=== PATIENT | male | born 1960 | race Caucasian/White ===

== ENCOUNTER 2022-08-08 07:53 | Outpatient (REF) | payer MEDICARE, SELFPAY ==
[2022-08-08 10:20] LABS: MANUAL DIFF FLAG NO
[2022-08-08 10:28] LABS: Basophils Absolute Auto 0.1 X10*3/uL (0.0-0.2); Basophils Percent Auto 0.9 % (0-2); Eosinophils Absolute Auto 0.2 X10*3/uL (0.0-0.4); Eosinophils Percent Auto 3.8 % (0-4); Hematocrit 44.4 % (42.0-52.0); Hemoglobin 14.7 g/dl (14.0-18.0); Lymphocytes Absolute Auto 1.5 X10*3/uL (1.2-4.9); Lymphocytes Percent Auto 27.7 % (20-40); Mean Corpuscular HGB Conc 33.1 g/dl (31.0-36.0); Mean Corpuscular Hemoglobin 28.5 pg (27.0-33.0); Mean Corpuscular Volume 86.2 fL (80.0-98.0); Mean Platelet Volume 10.2 fL (9.4-12.4); Monocytes Absolute Auto 0.5 X10*3/uL (0.1-1.2); Monocytes Percent Auto 9.5 % (2-11); Neutrophils Absolute Auto 3.2 x10*3/uL (2.0-8.3); Neutrophils Percent Auto 58.1 % (45-73); Platelet Count 207 X10*3/uL (160-400); Red Blood Count 5.15 X10*6/uL (4.60-5.80); White Blood Count 5.6 X10*3/uL (4.8-10.8)
[2022-08-08 10:57] LABS: Alanine Aminotransferase 15 U/L (0-40); Alkaline Phosphatase 80 U/L (39-117); Anion Gap 14 (12-20); Aspartate Amino Transferase 17 U/L (5-37); Bilirubin Total 0.7 mg/dL (0.0-1.0); Blood Urea Nitrogen 12 mg/dL (9-16); Calcium 8.7 mg/dL (8.4-10.2); Carbon Dioxide 27 mmol/L (22-29); Chloride 102 mmol/L (96-108); Cholesterol 168 mg/dL; Estimated Glomerular Filt Rate > 60; Glucose Fasting 97 mg/dL (60-99); HDL Cholesterol 47 mg/dL; LDL Cholesterol Calculated 110 mg/dl; Potassium 4.5 mmol/L (3.3-5.1); Sodium 138 mmol/L (135-145); Total Protein 6.9 g/dL (6.5-8.0); Triglycerides 55 mg/dL
== END 2022-08-08 07:54 | disposition home or self-care (01) ==
LOC: HO.10HDL 07:53
PROVIDERS: Visit Provider Internal Medicine
DX: Z00.00 Encounter for general adult medical examination without abnormal findings (principal); Z12.5 Encounter for screening for malignant neoplasm of prostate; Z13.31 Encounter for screening for depression; M79.81 Nontraumatic hematoma of soft tissue; B18.2 Chronic viral hepatitis C
CPT/HCPCS: 36415; 80053; 80061; 84153; 84443; 85025

== ENCOUNTER 2022-12-31 10:06 | Outpatient (REF) | payer MEDICARE, SELFPAY ==
[2023-01-02 12:13] LABS: Alpha Fetoprotein 2.4 ng/mL (<6.1)
[2023-01-06 00:59] LABS: FIB-ALT 19 U/L (9-46); FIB-Alpha-2-Macroglobulin 292 mg/dL (106-279); FIB-Apolipoprotein A1 157 mg/dL (94-176); FIB-GGT 10 U/L (3-70); FIB-Haptoglobin 139 mg/dL (43-212); FIB-Total Bilirubin 0.8 mg/dL (0.2-1.2); Liver Fibrosis Score 0.45; Liver Fibrosis Stage F1-F2; Nec Inflam Act Grade A0; Nec Inflam Act Score 0.09
== END 2022-12-31 10:07 | disposition home or self-care (01) ==
LOC: HO.10HDL 10:06
PROVIDERS: Visit Provider Internal Medicine
DX: B18.2 Chronic viral hepatitis C (principal)
CPT/HCPCS: 36415; 81596; 82105

== ENCOUNTER 2023-01-22 08:14 | Outpatient (REF) | payer MEDICARE, SELFPAY ==
--- NOTE | ~2023-01-22 | US_ITS ---
EXAMINATION: US COMPLETE ABDOMEN WITH LIVER ELASTOGRAPHY CLINICAL INFORMATION: Chronic hepatitis C. COMPARISON: None. TECHNIQUE: Real-time imaging of the abdominal viscera. Noninvasive ultrasound liver fibrosis assessment is performed using Angel ElastPQ point quantification shear wave elastography (2D-SWE) with a C5-2 MHz transducer. Multiple elastography samples are obtained. FINDINGS: PANCREAS: Limited. The visualized pancreatic head and body are normal in appearance. The remainder of the pancreas is obscured from visualization by the overlying bowel gas. ABDOMINAL AORTA: The proximal, middle, and distal aortic segments are normal in caliber. INFERIOR VENA CAVA: Visualized portions are normal. LIVER: Normal. The liver demonstrates normal size, contour and echogenicity. No focal lesion or intrahepatic biliary duct dilatation. The right lobe measures 12.5 cm in length. The left lobe measures 11.2 cm in length. Portal flow is towards the liver (hepatopetal). Shear wave liver elastography median stiffness is 1.32 m/s (reference: normal median stiffness is 1.3 m/s or less). IQR/median stiffness to assess sampling precision is 0.09 (reference: good quality data set is IQR/median stiffness of 0.15 or less). GALLBLADDER: Normal. The gallbladder is physiologically distended without evidence of stones, sludge, polyps, wall thickening or pericholecystic fluid. COMMON BILE DUCT: Normal in caliber measuring 0.6 cm in diameter. RIGHT KIDNEY: Normal. No hydronephrosis. No renal calculi or focal parenchymal lesions. The kidney measures 9.3 cm in maximum dimension. LEFT KIDNEY: At the interpolar aspect, a 2.3 cm in maximal diameter anechoic, simple cyst is seen.. No hydronephrosis. No renal calculi or focal parenchymal lesions. The kidney measures 10.3 cm in maximum dimension. SPLEEN: Normal. The spleen measures 8.8 cm in maximum dimension. FREE FLUID: None. US/US abdomen comp w elastography IMPRESSION: 1. Liver elastography: In the absence of other known clinical signs, measurements rule out compensated advanced chronic liver disease. If there are known clinical signs, further testing may be needed for confirmation. 2. A 2.2 cm benign, simple left renal cyst is seen, for which no imaging follow-up is recommended. 3. Technically limited ultrasound examination of the pancreatic tail. REFERENCE: Society of Radiologists in Ultrasound Liver Stiffness Thresholds (2020): LIVER STIFFNESS THRESHOLDS: *Liver Stiffness equal or less than 1.3 m/s: High probability of being normal. *Liver Stiffness less than 1.7 m/s: In the absence of other known clinical signs, rules out compensated advanced chronic liver disease. *Liver Stiffness 1.7-2.1 m/s: Suggestive of compensated advanced chronic liver disease but need further test for confirmation. *Liver Stiffness over 2.1 m/s: Rules in compensated advanced chronic liver disease. *Liver Stiffness over 2.4 m/s: Suggestive of clinically significant portal hypertension. QUALITY OF DATA SET: *IQR/Median value equal or less than 0.15 implies a quality data set. *IQR/Median value over 0.15 implies a poor quality data set. SIGNIFICANT CHANGE FROM PRIOR EXAM: Significant change if liver stiffness measurement is 10% or greater from prior exam. OTHER CONSIDERATIONS: The stage of liver fibrosis may be overestimated in the setting of acute hepatitis, liver inflammation, elevated liver function tests, hepatic vascular congestion, obstructive cholestasis, non-fasting state, and infiltrative diseases such as amyloidosis and lymphoma. In some patients with NAFLD, the liver stiffness thresholds for compensated advanced chronic liver disease may be lower. In causes other than viral hepatitis and NAFLD, liver stiffness thresholds are not well established.
== END 2023-01-22 08:15 | disposition home or self-care (01) ==
LOC: HO.US 08:14
PROVIDERS: Visit Provider Internal Medicine
DX: B18.2 Chronic viral hepatitis C (principal)
CPT/HCPCS: 76705; 76981

== ENCOUNTER 2023-12-30 09:48 | Outpatient (REF) | payer MEDICARE, SELFPAY ==
[2024-01-01 13:02] LABS: Alpha Fetoprotein 2.3 ng/mL (<6.1)
[2024-01-06 14:18] LABS: FIB-ALT 21 U/L (9-46); FIB-Alpha-2-Macroglobulin 273 mg/dL (106-279); FIB-Apolipoprotein A1 164 mg/dL (94-176); FIB-GGT 9 U/L (3-70); FIB-Haptoglobin 117 mg/dL (43-212); FIB-Total Bilirubin 0.7 mg/dL (0.2-1.2); Liver Fibrosis Score 0.39; Liver Fibrosis Stage F1-F2; Nec Inflam Act Grade A0
== END 2023-12-30 09:49 | disposition home or self-care (01) ==
LOC: HO.LAB 09:48
PROVIDERS: PCP Internal Medicine; Visit Provider Internal Medicine
DX: K74.00 Hepatic fibrosis, unspecified (principal); B18.2 Chronic viral hepatitis C; Z86.19 Personal history of other infectious and parasitic diseases
CPT/HCPCS: 36415; 81596; 82105

== ENCOUNTER 2024-01-15 08:18 | Outpatient (REF) | payer MEDICARE, SELFPAY ==
--- NOTE | ~2024-01-15 | US_ITS ---
EXAMINATION: US COMPLETE ABDOMEN WITH LIVER ELASTOGRAPHY CLINICAL INFORMATION: Chronic hepatitis C, liver fibrosis. COMPARISON: Ultrasound abdomen with elastography 01/22/2023. TECHNIQUE: Real-time imaging of the abdominal viscera. Noninvasive ultrasound liver fibrosis assessment is performed using Angel ElastPQ point quantification shear wave elastography (2D-SWE) with a C5-2 MHz transducer. Multiple elastography samples are obtained. FINDINGS: PANCREAS: Normal. The visualized pancreatic head and body are normal in appearance. The remainder of the pancreas is obscured from visualization by the overlying bowel gas. ABDOMINAL AORTA: The proximal, middle, and distal aortic segments are normal in caliber. INFERIOR VENA CAVA: Visualized portions are normal. LIVER: The liver demonstrates normal size, contour and echogenicity. No focal lesion or intrahepatic biliary duct dilatation. The right lobe measures 13.1 cm in length. The left lobe measures 9.9 cm in length. Portal flow is hepatopedal. Shear wave liver elastography median stiffness is 1.25 m/s (reference: normal median stiffness is 1.3 m/s or less). IQR/median stiffness to assess sampling precision is 0.10 (reference: good quality data set is IQR/median stiffness of 0.15 or less). GALLBLADDER: There is a small gallbladder polyp measuring 0.2 x 0.1 x 0.2 cm. The gallbladder is physiologically distended without evidence of stones, sludge, wall thickening or pericholecystic fluid. COMMON BILE DUCT: Normal in caliber measuring 0.7 cm in diameter. RIGHT KIDNEY: Normal. No hydronephrosis. No renal calculi or focal parenchymal lesions. The kidney measures 0.7, 10.1 cm in maximum dimension. LEFT KIDNEY: Normal. No hydronephrosis. No renal calculi or focal parenchymal lesions. The kidney measures 10.7 cm in maximum dimension. There are two anechoic cysts measuring 1.4 x 1.9 x 1.4 cm in lower pole and 0.9 x 1.0 x 0.7 cm in upper/midpole. SPLEEN: Normal. The spleen measures 8.3 cm in maximum dimension. FREE FLUID: None. US/US abdomen comp w elastography IMPRESSION: 1. Small gallbladder wall polyp. No wall thickening or echogenic stones. Two cysts left kidney. 2. Liver elastography: Median liver stiffness 1.25 m/s suggestive of high probability normal. REFERENCE: Society of Radiologists in Ultrasound Liver Stiffness Thresholds (2020): LIVER STIFFNESS THRESHOLDS: *Liver Stiffness equal or less than 1.3 m/s: High probability of being normal. *Liver Stiffness less than 1.7 m/s: In the absence of other known clinical signs, rules out compensated advanced chronic liver disease. *Liver Stiffness 1.7-2.1 m/s: Suggestive of compensated advanced chronic liver disease but need further test for confirmation. *Liver Stiffness over 2.1 m/s: Rules in compensated advanced chronic liver disease. *Liver Stiffness over 2.4 m/s: Suggestive of clinically significant Portal hypertension. QUALITY OF DATA SET: *IQR/Median value equal or less than 0.15 implies a quality data set. *IQR/Median value over 0.15 implies a poor quality data set. SIGNIFICANT CHANGE FROM PRIOR EXAM: Significant change if liver stiffness measurement is 10% or greater from prior exam. OTHER CONSIDERATIONS: The stage of liver fibrosis may be overestimated in the setting of acute hepatitis, liver inflammation, elevated liver function tests, hepatic vascular congestion, obstructive cholestasis, non-fasting state, and infiltrative diseases such as amyloidosis and lymphoma. In some patients with NAFLD, the liver stiffness thresholds for compensated advanced chronic liver disease may be lower. In causes other than viral hepatitis and NAFLD, liver stiffness thresholds are not well established.
== END 2024-01-15 08:19 | disposition home or self-care (01) ==
LOC: HO.US 08:18
PROVIDERS: PCP Internal Medicine; Visit Provider Internal Medicine
DX: B18.2 Chronic viral hepatitis C (principal); K74.00 Hepatic fibrosis, unspecified; Z86.19 Personal history of other infectious and parasitic diseases
CPT/HCPCS: 76700; 76981

== ENCOUNTER 2024-01-31 22:30 | Emergency (ER) | payer MEDICARE, SELFPAY ==
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
[2024-01-31 22:32] VITALS: BP 178/84; PULSE 78; RESP 16; TEMP 36.6; O2SAT 98; BMI 20.1
[2024-01-31 22:49] VITALS: BP 168/70; PULSE 74; RESP 16; TEMP 36.8; O2SAT 100
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
[2024-02-01 02:50] VITALS: BP 149/71; PULSE 68; RESP 17; O2SAT 100
--- NOTE | 2024-02-01 02:59 | PC.NURSE ---
pt ambulatory with steady gait to bathroom, denies nausea, sob and cheat pain.
== END 2024-02-01 03:00 | disposition home or self-care (01) ==
PROVIDERS: Emergency Provider Internal Medicine; PCP Internal Medicine
DX: S01.01XA Laceration without foreign body of scalp, initial encounter (principal); S60.410A Abrasion of right index finger, initial encounter; S80.212A Abrasion, left knee, initial encounter; S80.211A Abrasion, right knee, initial encounter; Y00.XXXA Assault by blunt object, initial encounter; Y93.89 Activity, other specified; Y92.512 Supermarket, store or market as the place of occurrence of the external cause; Y99.0 Civilian activity done for income or pay
CPT/HCPCS: 12001; 70450; 72125; 73110; 73130; 73564; 99284

== ENCOUNTER 2024-02-11 06:45 | Emergency (ER) | payer MEDICARE, SELFPAY ==
[2024-02-11 07:14] VITALS: BP 139/51; PULSE 64; RESP 16; TEMP 36.6; O2SAT 100; BMI 20.1
--- NOTE | 2024-02-11 07:18 | ED_ITS ---
HPI - Wound/Laceration General Chief Complaint: Wound/Laceration Stated Complaint: needs vonnie removed Time Seen by Provider: 02/11/24 07:18 Source: patient Mode of arrival: ambulatory Limitations: no limitations History of Present Illness HPI narrative: Patient is a 72-year-old male presenting to the emergency department for removal of vonnie from scalp placed on 02/07. He denies any concerns, denies any redness, swelling, purulent drainage, fevers. Onset (ago): day(s) Location: scalp Patient tetanus UTD: Yes Associated symptoms: none Related Data Allergies Allergy/AdvReac Type Severity Reaction Status Date / Time codeine [CODEINE] Allergy Mild NAUSEA & Verified 02/11/24 07:16 VOMITING, nausea and vomiting Review of Systems 2 Review of Systems: As per HPI. Yes all other systems are reviewed and are negative Constitutional: Constitutional: Reports as per HPI [facility] Social History Social History Advance Directives: No Advance Directives Information Provided: No Physical Exam 2 Vital Signs: Vital Signs: Last Vital Signs Temp 98 F 02/11/24 07:14 Pulse 64 02/11/24 07:14 Resp 16 02/11/24 07:14 BP 139/51 L 02/11/24 07:14 Pulse Ox 100 02/11/24 07:14 O2 Del Method Room Air 02/11/24 07:14 BMI result Body Mass Index 20.1 Vital signs have been reviewed and appear to be correct. Blood pressure normal. Heart rate normal. Respiratory rate normal. Temperature normal. Oxygen saturation normal. Const: General: cooperative, healthy appearing and no acute distress O rientation/consciousness: oriented to person, oriented to place, oriented to time and patient oriented x3 Limitations: no limitations HEENT: Head: Yes normocephalic and Yes other Head images: 1. well-healing wound with [address] 2[address] well-healing wound with [address] Ears: external ears normal General nose exam: Normal external nose present Face and sinus: Yes face symmetric Mouth: oropharynx normal and moist mucous membranes Throat: Yes uvula midline Eyes: Pupils: Equal, round and reactive pupils present Neck: Neck: Yes normal visual inspection and Yes supple Resp: Effort & Inspection: normal respiratory effort and able to speak in complete sentences Auscultation: clear to auscultation bilaterally Cardio: Rate: regular rate Rhythm: regular rhythm Heart sounds: S1 normal heart sound present and S2 normal heart sound present GI: Palpation (GI): Soft to palpation and nontender Auscultation: n ormoactive bowel sounds : General: Yes no CVA tenderness Back/Spine/Pelvis: Back: no CVA tenderness Skin: General skin exam: elasticity normal and turgor normal Neuro: General: oriented to person, oriented to place, oriented to time, patient oriented x3, moves all extremities, no focal motor deficits and CN's II- XI intact bilaterally Cranial nerves: Yes Equal, round and reactive pupils present Cognition (Neuro): normal cognition Extrem: General: Yes full ROM, Yes no pedal edema and Yes no calf tenderness Psych: Mental Status: mental status grossly normal Affect: normal affect Thought process: Normal thought process present Medical Decision Making Medical Decision Making [facility] Narrative: Patient is a 72-year-old male presenting to the emergency department for removal of vonnie from scalp placed on 02/07. On exam patient is awake, A+Ox3, VS WNL, afebrile, normal neurological exam without focal deficits, physical exam findings as above. Given reported symptoms and physical exam findings, initial differential includes staple removal, wound dehiscence, cellulitis. 6 vonnie removed without difficulty with success. Discussed ongoing wound care and daily assessments with patient. Return precautions discussed at bedside. Instructed patient to follow up with PCP. Patient verbalized understanding of and agreement with plan. Differential Diagnosis Differential Diagnoses: The differential diagnosis associated with the presentation includes As per [facility] External Record Review External record reviewed: Inpatient record, Office record and Outpatient record Discharge Plan Discharge Clinical Impression: Removal of vonnie Patient Disposition: Home, Self-Care Additional Instructions: You were evaluated in the emergency department today for removal of vonnie placed in your scalp on 02/07. The vonnie were removed without difficulty and your wounds appear to be well-appearing. Please follow up with your primary care provider. Return to the emergency department if you develop new redness, swelling, thick yellow drainage, fever or any other concerning symptoms. Interventions: ED Discharge Assessment Last Done: 02/11/24 07:32
--- NOTE | 2024-02-11 07:24 | PC.NURSE ---
[place] removed by provider
== END 2024-02-11 07:34 | disposition home or self-care (01) ==
PROVIDERS: Emergency Provider Emergency Medicine Emergency Medical Services
DX: Z48.02 Encounter for removal of sutures (principal)
CPT/HCPCS: 99283

== ENCOUNTER 2024-08-06 07:48 | Outpatient (REF) | payer MEDICARE, SELFPAY ==
[2024-08-06 10:46] LABS: MANUAL DIFF FLAG NO
[2024-08-06 10:50] LABS: Basophils Absolute Auto 0.1 X10*3/uL (0.0-0.2); Eosinophils Absolute Auto 0.2 X10*3/uL (0.0-0.4); Eosinophils Percent Auto 3.8 % (0-4); Hematocrit 41.8 % (42.0-52.0); Hemoglobin 14.1 g/dl (14.0-18.0); Imm Gran Abs Auto 0.01 X10*3/uL (0.00-0.03); Imm Gran Pct Auto 0.2 % (0.0-0.4); Lymphocytes Absolute Auto 1.3 X10*3/uL (1.2-4.9); Lymphocytes Percent Auto 24.6 % (20-40); Mean Corpuscular HGB Conc 33.7 g/dl (31.0-36.0); Mean Corpuscular Hemoglobin 29.1 pg (27.0-33.0); Mean Corpuscular Volume 86.4 fL (80.0-98.0); Mean Platelet Volume 10.1 fL (9.4-12.4); Monocytes Absolute Auto 0.5 X10*3/uL (0.1-1.2); Monocytes Percent Auto 9.4 % (2-11); Neutrophils Absolute Auto 3.2 x10*3/uL (2.0-8.3); Platelet Count 199 X10*3/uL (160-400); Red Blood Count 4.84 X10*6/uL (4.60-5.80); Red Cell Distribution Width 13.4 % (11.0-16.0); White Blood Count 5.2 X10*3/uL (4.8-10.8)
[2024-08-06 11:07] LABS: Alanine Aminotransferase 15 U/L (0-40); Albumin Level 3.9 g/dL (3.5-5.0); Alkaline Phosphatase 67 U/L (39-117); Anion Gap 11 (12-20); Aspartate Amino Transferase 15 U/L (5-37); Bilirubin Total 0.5 mg/dL (0.0-1.0); Blood Urea Nitrogen 15 mg/dL (9-16); Calcium 9.2 mg/dL (8.4-10.2); Carbon Dioxide 27 mmol/L (22-29); Chloride 106 mmol/L (96-108); Cholesterol 166 mg/dL (<200); Estimated Glomerular Filt Rate > 60; Glucose Random 90 mg/dL (60-115); HDL Cholesterol 52 mg/dL (>40); LDL Cholesterol Calculated 106 mg/dL (<100); Potassium 4.7 mmol/L (3.3-5.1); Sodium 139 mmol/L (135-145); Total Protein 6.6 g/dL (6.5-8.0); Triglycerides 43 mg/dL (<150)
[2024-08-06 11:33] LABS: Prostate Specific Antigen Scr 0.59 ng/mL (<0.05-4.0)
[2024-08-09 14:13] LABS: HCV RNA PCR Qn <1.18 NOT DETECTED Log IU/mL (NOT DETECTED); HCV RNA PCR Qn <15 NOT DETECTED IU/mL (NOT DETECTED)
== END 2024-08-06 07:49 | disposition home or self-care (01) ==
LOC: HO.10HDL 07:48
PROVIDERS: Visit Provider Internal Medicine
DX: Z12.5 Encounter for screening for malignant neoplasm of prostate (principal); Z13.6 Encounter for screening for cardiovascular disorders; B18.2 Chronic viral hepatitis C; N40.0 Benign prostatic hyperplasia without lower urinary tract symptoms
CPT/HCPCS: 36415; 80053; 80061; 84153; 85025; 87522

== ENCOUNTER 2024-12-30 09:42 | Outpatient (REF) | payer MEDICARE, SELFPAY ==
[2024-12-30 10:48] LABS: MANUAL DIFF FLAG NO
[2024-12-30 10:50] LABS: Basophils Absolute Auto 0.1 X10*3/uL (0.0-0.2); Eosinophils Absolute Auto 0.2 X10*3/uL (0.0-0.4); Eosinophils Percent Auto 3.1 % (0-4); Hematocrit 47.7 % (42.0-52.0); Hemoglobin 16.1 g/dl (14.0-18.0); Imm Gran Abs Auto 0.01 X10*3/uL (0.00-0.03); Imm Gran Pct Auto 0.2 % (0.0-0.4); Lymphocytes Absolute Auto 1.3 X10*3/uL (1.2-4.9); Lymphocytes Percent Auto 21.6 % (20-40); Mean Corpuscular HGB Conc 33.8 g/dl (31.0-36.0); Mean Corpuscular Volume 85.8 fL (80.0-98.0); Mean Platelet Volume 10.5 fL (9.4-12.4); Monocytes Absolute Auto 0.6 X10*3/uL (0.1-1.2); Monocytes Percent Auto 10.1 % (2-11); Neutrophils Absolute Auto 3.7 x10*3/uL (2.0-8.3); Platelet Count 219 X10*3/uL (160-400); Red Blood Count 5.56 X10*6/uL (4.60-5.80); White Blood Count 5.8 X10*3/uL (4.8-10.8)
[2024-12-30 10:55] LABS: Prothrombin Time 11.6 SEC (10.9-12.4)
[2024-12-30 11:01] LABS: Alanine Aminotransferase 36 U/L (0-40); Albumin Level 4.2 g/dL (3.5-5.0); Alkaline Phosphatase 83 U/L (39-117); Aspartate Amino Transferase 24 U/L (5-37); Bilirubin Direct 0.2 mg/dL (0.0-0.5); Bilirubin Total 0.5 mg/dL (0.0-1.0)
--- OUTSIDE RECORDS SUMMARY | 2024-12-30 12:46 | XMS_ITS | Patient Health Record ---
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 Name Role Phone Berenice Bright Primary Care Provider UnavailElier Partida Unavailable [phone] ALLERGIES Allergen (clinical drug ingredient) Drug/Non Drug Allergy documented on EMR Reaction Allergy Type Onset Date Status Codeine Phosphate Unknown Drug Allergy Active RESULTS Component Value Reference Range Notes Liver Fibrosis Pnl Reviewed date:02/07/2024 07:09:48 PM Interpretation: Performing Lab:[facility], [address] [place] [phone] Notes/Report: Liver Fibrosis Score 0.39 Liver Fibrosis Stage F1-F2 Liver Fibrosis Interpretation SEE NOTE minimal fibrosis Fibro Test Score (f) Metavir Score f>=0 and f<=0.21 : F0 (no fibrosis) f>0.21 and f<=0.27 : F0-F1 (no fibrosis) f>0.27 and f<=0.31 : F1 (minimal fibrosis) f>0.31 and f<=0.48 : F1-F2 (minimal fibrosis) f>0.48 and f<=0.58 : F2 (moderate fibrosis) f>0.58 and f<=0.72 : F3 (advanced fibrosis) f>0.72 and f<=0.74 : F3-F4 (advanced fibrosis) f>0.74 and f<=1.00 : F4 (severe fibrosis) Nec Inflam Act Score 0.10 Nec Inflam Act Grade A0 Nec Inflam Act Interpretation SEE NOTE no activity ActiTest Score (a) Metavir Score a>=0 and a<=0.17 : A0 (no activity) a>0.17 and a<=0.29 : A0-A1 (no activity) a>0.29 and a<=0.36 : A1 (minimal activity) a>0.36 and a<=0.52 : A1-A2 (minimal activity) a>0.52 and a<=0.60 : A2 (significant activity) a>0.60 and a<=0.62 : A2-A3 (significant activity) a>0.62 and a<=1.00 : A3 (severe activity) QJS-Uniyc-3-Macroglobulin 273 106-279 mg/dL FIB-Haptoglobin 117 43-212 mg/dL FIB-Apolipoprotein A1 164 94-176 mg/dL FIB-Total Bilirubin 0.7 0.2-1.2 mg/dL FIB-GGT 9 3-70 U/L FIB-ALT 21 9-46 U/L Reference ID [id number] Footnote SEE NOTE The reliability of results is dependent on compliance with the preanalytical and analytical conditions recommended by [employer]. The tests have to be deferred for: acute hemolysis, acute hepatitis, acute inflammation, extra hepatic cholestasis. The advice of a specialist should be sought for interpretation in chronic hemolysis and Gilbert's syndrome. The test interpretation is not validated in liver transplant patients. Isolated extreme values of one of the components should lead to caution in interpreting the results. In case of discordance between a biopsy result and a test, it is recommended to seek the advice of a specialist. The causes of these discordances could be due to a flaw of the test or to a flaw in the biopsy: i.e. a liver biopsy has a 33% variability rate for one fibrosis stage. FibroTest is interpretable for chronic hepatitis B and C, alcoholic and non alcoholic steatosis. ActiTest is interpretable for chronic hepatitis B and C. The performance characteristics have been determined by [facility]. It has not been cleared or approved by the U.S. Food and Drug Administration. Performance characteristics refer to the analytical performance of the test. Rakuten, the associated logo, iFit and all associated ENE[employer] tadeo are the registered trademarks of [employer]. All third libertarian tadeo - (R) and (TM) - are the property of their respective owners. (C) 0906-6235 [employer] Incorporated. All rights reserved. THIS TEST WAS PERFORMED AT: [facility] [address] [place] [address] TRISTIN MARAVILLA MD,PHD,AMARIS Alpha Fetoprotein Reviewed date:01/06/2024 04:25:22 PM Interpretation: Performing Lab:[facility], [address] [place] [phone] Notes/Report: Alpha Fetoprotein 2.3 <6.1 ng/mL This test was performed using the [place] chemiluminescent method. Values obtained from different assay methods cannot be used interchangeably. AFP levels, regardless of value, should not be interpreted as absolute evidence of the presence or absence of disease. THIS TEST WAS PERFORMED AT: [facility] [address] [place] [phone] ANTHONY HODGES MD US abdomen comp w elastograp hy Reviewed date:02/07/2024 07:12:19 PM Interpretation: Performing Lab: Notes/Report: [address] [address] Ultrasound Report Signed Patient: Eulalio Frias MR#: [id number] 8 : 03/01/1951 Acct:[id number] Age/Sex: 72 / M ADM Date: 01/15/24 Loc: HO.US Attending Dr: Elier Clay MD Ordering Physician: Elier Clay Date of Service: 01/15/24 Procedure(s): US abdomen comp w elastography Accession Number(s): [id number] cc: Berenice Bright MD; Elier Clay EXAMINATION: US COMPLETE ABDOMEN WITH LIVER ELASTOGRAPHY CLINICAL INFORMATION: Chronic hepatitis C, liver fibrosis. COMPARISON: Ultrasound abdomen with elastography 01/22/2023. TECHNIQUE: Real-time imaging of the abdominal viscera. Noninvasive ultrasound liver fibrosis assessment is performed using Angel ElastPQ point quantification shear wave elastography (2D-SWE) with a C5-2 MHz transducer. Multiple elastography samples are obtained. FINDINGS: PANCREAS: Normal. The visualized pancreatic head and body are normal in appearance. The remainder of the pancreas is obscured from visualization by the overlying bowel gas. ABDOMINAL AORTA: The proximal, middle, and distal aortic segments are normal in caliber. INFERIOR VENA CAVA: Visualized portions are normal. LIVER: The liver demonstrates normal size, contour and echogenicity. No focal lesion or intrahepatic biliary duct dilatation. The right lobe measures 13.1 cm in length. The left lobe measures 9.9 cm in length. Portal flow is hepatopedal. Shear wave liver elastography median stiffness is 1.25 m/s (reference: normal median stiffness is 1.3 m/s or less). IQR/median stiffness to assess sampling precision is 0.10 (reference: good quality data set is IQR/median stiffness of 0.15 or less). GALLBLADDER: There is a small gallbladder polyp measuring 0.2 x 0.1 x 0.2 cm. The gallbladder is physiologically distended without evidence of stones, sludge, wall thickening or pericholecystic fluid. COMMON BILE DUCT: Normal in caliber measuring 0.7 cm in diameter. RIGHT KIDNEY: Normal. No hydronephrosis. No renal calculi or focal parenchymal lesions. The kidney measures 0.7, 10.1 cm in maximum dimension. LEFT KIDNEY: Normal. No hydronephrosis. No renal calculi or focal parenchymal lesions. The kidney measures 10.7 cm in maximum dimension. There are two anechoic cysts measuring 1.4 x 1.9 x 1.4 cm in lower pole and 0.9 x 1.0 x 0.7 cm in upper/midpole. SPLEEN: Normal. The spleen measures 8.3 cm in maximum dimension. FREE FLUID: None. US/US abdomen comp w elastography IMPRESSION: 1. Small gallbladder wall polyp. No wall thickening or echogenic stones. Two cysts left kidney. 2. Liver elastography: Median liver stiffness 1.25 m/s suggestive of high probability normal. REFERENCE: Society of Radiologists in Ultrasound Liver Stiffness Thresholds (2020): LIVER STIFFNESS THRESHOLDS: *Liver Stiffness equal or less than 1.3 m/s: High probability of being normal. *Liver Stiffness less than 1.7 m/s: In the absence of other known clinical signs, rules out compensated advanced chronic liver disease. *Liver Stiffness 1.7-2.1 m/s: Suggestive of compensated advanced chronic liver disease but need further test for confirmation. *Liver Stiffness over 2.1 m/s: Rules in compensated advanced chronic liver disease. *Liver Stiffness over 2.4 m/s: Suggestive of clinically significant Portal hypertension. QUALITY OF DATA SET: *IQR/Median value equal or less than 0.15 implies a quality data set. *IQR/Median value over 0.15 implies a poor quality data set. SIGNIFICANT CHANGE FROM PRIOR EXAM: Significant change if liver stiffness measurement is 10% or greater from prior exam. OTHER CONSIDERATIONS: The stage of liver fibrosis may be overestimated in the setting of acute hepatitis, liver inflammation, elevated liver function tests, hepatic vascular congestion, obstructive cholestasis, non-fasting state, and infiltrative diseases such as amyloidosis and lymphoma. In some patients with NAFLD, the liver stiffness thresholds for compensated advanced chronic liver disease may be lower. In causes other than viral hepatitis and NAFLD, liver stiffness thresholds are not well established. Dictated By: Rogers Covington MD Signed By: <Electronically signed by Rogers Covington MD in OV> 01/15/24 1631 DD/ 0857 TD/TT: Ic Designer Standard Cells: IFTIKHAR Prothrombin Time INR (Not ye t reviewed by provider) Interpretation: Performing Lab:[address] [phone] Notes/Report: Prothrombin Time 11.6 10.9-12.4 SEC INTERNATIONAL NORM RATIO 1.0 0.9-1.1 INTERNATIONAL NORMALIZED RATIO (INR) REFERENCE RANGES Reference Range For patients not on anticoagulant therapy: 0.9 - 1.1 INR ranges for oral anticoagulant therapy: For prevention and treatment of venous thrombosis and pulmonary embolism: 2.0 - 3.0 For acute myocardial infarction with aspirin therapy: 2.0 - 3.0 For acute myocardial infarction without aspirin therapy: 3.0 - 4.0 For patients with mechanical prosthetic heart valves: 2.5 - 3.5 Complete Blood Count Auto Di ff (Not yet reviewed by provider) Interpretation: Performing Lab:[address] [address] Notes/Report: White Blood Count 5.8 4.8-10.8 X10*3/uL Red Blood Count 5.56 4.60-5.80 X10*6/uL Hemoglobin 16.1 14.0-18.0 g/dl Hematocrit 47.7 42.0-52.0 % Mean Corpuscular Volume 85.8 80.0-98.0 fL Mean Corpuscular Hemoglobin 29.0 27.0-33.0 pg Mean Corpuscular HGB Conc 33.8 31.0-36.0 g/dl Red Cell Distribution Width 13.0 11.0-16.0 % Platelet Count 219 160-400 X10*3/uL Mean Platelet Volume 10.5 9.4-12.4 fL Neutrophils Percent Auto 64.0 45-73 % Imm Gran Pct Auto 0.2 0.0-0.4 % Lymphocytes Percent Auto 21.6 20-40 % Monocytes Percent Auto 10.1 2-11 % Eosinophils Percent Auto 3.1 0-4 % Basophils Percent Auto 1.0 0-2 % NRBC Pct Auto 0.0 0.0-0.2 /100WBC Neutrophils Absolute Auto 3.7 2.0-8.3 x10*3/u L Imm Gran Abs Auto 0.01 0.00-0.03 X10*3/uL Lymphocytes Absolute Auto 1.3 1.2-4.9 X10*3/u L Monocytes Absolute Auto 0.6 0.1-1.2 X10*3/uL Eosinophils Absolute Auto 0.2 0.0-0.4 X10*3/u L Basophils Absolute Auto 0.1 0.0-0.2 X10*3/uL NRBC Abs Auto 0.000 0.0-0.012 X10*3/uL Liver Panel (Not yet reviewe d by provider) Interpretation: Performing Lab:[facility], [address] [place] [phone] Notes/Report: Bilirubin Total 0.5 0.0-1.0 mg/dL Bilirubin Direct 0.2 0.0-0.5 mg/dL Aspartate Amino Transferase 24 5-37 U/L Alanine Aminotransferase 36 0-40 U/L Total Protein 8.0 6.5-8.0 g/dL Albumin Level 4.2 3.5-5.0 g/dL Alkaline Phosphatase 83 39-117 U/L REASON FOR REFERRAL No Information MEDICATIONS Medication SIG (Take, Route, Fr equency, Duration) Notes Start Date End Date Status Vitamin B Complex - as directed Orally Not-Taking Multivitamin Not-Jamel ing IMMUNIZATIONS Vaccine Route Administration Date Status Comme nts Influenza Unknown 08/01/2022 Administered Influenza Unknown 05/02/2020 Refused SOCIAL HISTORY Sex Assigned At : Social History Observation Description Sex Assigned At Unknown PROBLEMS Problem Type ICD Code Onset Dates Problem Status W/U Status Risk SNOMED Code Notes Problem Encounter for screening for malignant neoplasm of colon (Z12.11) Active confirmed 329379715 Problem Chronic hepatitis C without hepatic coma (B18.2) Active confirmed 695871424 Problem History of hepatitis C (Z86.19) Active confirmed 13517618575272 Problem Liver fibrosis (K74.00) Active confirmed [id number] VITAL SIGNS Temperature 97.8 degrees Fahrenheit 12/30/2023 Blood pressure diastolic 00 mm Hg 12/30/2024 Height 68.25 in 12/30/2024 Blood pressure systolic 00 mm Hg 12/30/2024 Weight 135 lbs 12/30/2024 BMI 20.37 kg/m2 12/30/2024 Encounters Encounter Location Date Provider Diagnosis [facility] [address] [place] [phone] 12/30/2023 Elier Clay History of hepatitis C Z86.19 and Liver fibrosis K74.00 [facility] [address] [place] [address] 12/30/2024 Elier Clay Encounter for screening for malignant neoplasm of colon Z12.11 ; Liver fibrosis K74.00 and History of hepatitis C Z86.19 ASSESSMENTS Encounter Date Diagnosis Assessment Notes Treatment Notes Treatment Clinical Notes 12/30/2023 History of hepatitis C (ICD-10 - Z86.19) 12/30/2024 Encounter for screening for malignant neoplasm of colon (ICD-10 - Z12.11) 12/30/2024 Liver fibrosis (ICD-10 - K74.00) 12/30/2023 Liver fibrosis (ICD-10 - K74.00) 12/30/2024 History of hepatitis C (ICD-10 - Z86.19) 12/30/2023 Other Need copies of any 2022 labs from his PCP. They were done at [facility]. PLAN OF TREATMENT Pending Test Test Name Order Date LIVER PROFILE 07/18/2016 LIVER PROFILE 10/14/2012 LIVER PROFILE 12/30/2024 LIVER PROFILE 09/03/2018 LIVER PROFILE 05/28/2016 LIVER PROFILE 10/22/2016 CBC w DIFF 07/18/2016 CBC w DIFF 12/30/2024 CBC w DIFF 09/03/2018 CBC w DIFF 05/28/2016 PROTHROMBIN TIME (PT, INR) 09/03/2018 ALPHA-FETOPROTEIN,TUMOR MARKER 2 ALPHA-FETOPROTEIN,TUMOR MARKER 3 ALPHA-FETOPROTEIN,TUMOR MARKER 5 ALPHA-FETOPROTEIN,TUMOR MARKER 6 ALPHA-FETOPROTEIN,TUMOR MARKER 4 ALPHA-FETOPROTEIN,TUMOR MARKER 8 HEPATITIS C VIRAL LOAD 09/03/2018 HEPATITIS C VIRAL LOAD 07/18/2016 HEPATITIS C VIRAL LOAD 05/28/2016 HEPATITIS C VIRAL LOAD 10/22/2016 HCV LIVER FIBROSIS, FIBRO TEST 5 US ABDOMEN COMP WITH ELASTOGRAPHY 2022 Complete Blood Count Auto Diff 5 Prothrombin Time INR 12/30/2024 Liver Panel 12/30/2024 US abdomen comp w elastography 4 US abdomen comp w elastography 5 Future Test Test Name Order Date COLONOSCOPY 04/22/2017 COLONOSCOPY 09/03/2018 Next Appt Details Provider Name:Elier Clay , 12/29/2025 09:00:00 AM, [address] [place] [address], [address], [place], [address], Insurance Providers Payer Name Payer Address Payer Phone Subscriber Number Group Number Insured Name Patient Relationship to Insured Coverage Start Date Coverage End Date [facility] [address] [place], [place] [id number] EULALIO FRIAS Self - patient is the insured MEDICAL (GENERAL) HISTORY Medical History History ICD Code Chronic hep C-liver bx in 2006-Gr. 1-2/Stage I/IV; Genotype 1b; Rx'd with 3 months of the PEG-Intron and Ribavirin 10/07-12/08-nonresponder, and felt very lousy from meds and also had pruritus. Had 3 Twin-Rx shots in 2006. He finished 12 weeks of Viekira in 08/2016 and had a nondetectable Hep C viral load in 10/2016, 03/2017, and 10/2018 Neg. 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 Adrian mireles--no surgery as of 08/2018 Neg screening colonoscopy in 03/2019 Surgical History Surgery Date(Month/Year) Surgery on his arm for a bur n in the distant past(18 months old) / with corrective surgery
--- OUTSIDE RECORDS SUMMARY | 2024-12-30 12:46 | XMS_ITS ---
Author Organization [facility] Address [address] [place] [address] Care Team Providers Care Psychology Physician Name Role Phone Berenice Bright Primary Care Provider Elier Osorio Unavailable [phone] ALLERGIES Allergen (clinical drug ingredient) Drug/Non Drug Allergy documented on EMR Reaction Allergy Type Onset Date Status Codeine Phosphate Unknown Drug Allergy Active RESULTS Component Value Reference Range Notes Liver Fibrosis Pnl Reviewed date:02/07/2024 07:09:48 PM Interpretation: Performing Lab:[facility], [address] [place] [phone] Notes/Report: Liver Fibrosis Score 0.39 Liver Fibrosis [...] a>0.62 and a<=1.00 : A3 (severe activity) NLA-Gbrlq-2-Macroglobulin 273 106-279 mg/dL FIB-Haptoglobin 117 43-212 mg/dL FIB-Apolipoprotein A1 164 94-176 mg/dL FIB-Total Bilirubin 0.7 0.2-1.2 mg/dL FIB-GGT 9 3-70 U/L FIB-ALT 21 9-46 U/L Reference ID [id number] Footnote SEE NOTE The reliability of results is dependent on compliance with the preanalytical and analytical conditions recommended by [employer]. The tests have to be deferred for: [...] The performance characteristics have been determined by [facility]. It has not been cleared or approved by the U.S. Food and Drug Administration. Performance characteristics refer to the analytical performance of the test. [employer], the associated logo, Mob[employer]ly and all associated [employer] tadeo are the registered trademarks of [employer]. All third alliance party tadeo - (R) and (TM) - are the property of their respective owners. (C) 7754-1674 [employer] Incorporated. All rights reserved. THIS TEST WAS PERFORMED AT: [facility] [address] [place] [address] TRISTIN MARAVILLA MD,PHD,AMARIS REASON FOR VISIT Patient presents today for hep c MEDICATIONS Medication SIG (Take, Route, Fr equency, Duration) Notes Start Date End Date Status Multivitamin Not-Jamel ing Vitamin B Complex - as directed Orally Not-Taking PROBLEMS Problem Type ICD Code Onset Dates Problem Status W/U Status Risk SNOMED Code Notes Problem Liver fibrosis (K74.00) Active confirmed [id number] VITAL SIGNS BMI 19.62 kg/m2 12/30/2023 Blood pressure systolic 00 mm Hg 12/30/19 24 Blood pressure diastolic 00 mm Hg 024 Height 68.25 in 12/30/2023 Temperature 97.8 degrees Fahrenheit 12/30/19 24 Weight 130 lbs 12/30/2023 Encounters Encounter Location Date Provider Diagnosis [facility] [address] [place] [address] 12/30/2023 Elier Clay History of hepatitis C Z86.19 and Liver fibrosis K74.00 ASSESSMENTS Encounter Date Diagnosis Assessment Notes Treatment Notes Treatment Clinical Notes 12/30/2023 History of hepatitis C (ICD-10 - Z86.19) 12/30/2023 Liver fibrosis (ICD-10 - K74.00) 12/30/2023 Other Need copies of any 2022 labs from his PCP. They were done at [facility]. PLAN OF TREATMENT Treatment Notes Assessment Notes Other Need copies of any labs from his PCP. They were done at [facility]. Pending Test Test Name Order Date ALPHA-FETOPROTEIN,TUMOR MARKER 4 US abdomen comp w elastography 4 Next Appt Details Follow Up: 1 Year, Reason: Provider Name:Elier Clay , 12/29/2025 09:00:00 AM, [address], [address], [place], [address], Progress Notes * Examination Category Sub-Category Detail Notes General Examination GENERAL APPEARANCE: pleasant , well nourished, well developed, in no acute distress EYES: sclera non-icteric NECK/THYROID: no cervical lymphade nopathy, neck supple HEART: S1, S2 normal LUNGS: clear to auscultatio n bilaterally ABDOMEN: normal bowel sounds, no guarding or rigidity, no hepatosplenomegaly, no masses palpable, soft, nontender, nondistended. NEUROLOGIC: alert and oriented SKIN: nonjaundiced, no spi caroline angiomata. EXTREMITIES: no edema ORAL CAVITY: mucosa moist
--- OUTSIDE RECORDS SUMMARY | 2024-12-30 12:46 | XMS_ITS ---
Author Organization [facility] Address [address] [place] [address] Care Team Providers Care Data Examination Clerk Name Role Phone Berenice Bright Primary Care Provider UnavailElier Partida Unavailable [phone] ALLERGIES Allergen (clinical drug ingredient) Drug/Non Drug Allergy documented on EMR Reaction Allergy Type Onset Date Status Codeine Phosphate Unknown Drug Allergy Active RESULTS Component Value Reference Range Notes Prothrombin Time INR (Not ye t reviewed by provider) Interpretation: Performing Lab:[facility], [address] [place] [phone] Notes/Report: Prothrombin Time 11.6 10.9-12.4 SEC INTERNATIONAL [...] mechanical prosthetic heart valves: 2.5 - 3.5 REASON FOR VISIT Patient presents today for a hx of hep c MEDICATIONS Medication SIG (Take, Route, Fr equency, Duration) Notes Start Date End Date Status Vitamin B Complex - as directed Orally Not-Taking Multivitamin Not-Jamel ing VITAL SIGNS BMI 20.37 kg/m2 12/30/2024 Blood pressure systolic 00 mm Hg 12/30/19 25 Blood pressure diastolic 00 mm Hg 025 Height 68.25 in 12/30/2024 Weight 135 lbs 12/30/2024 Encounters Encounter Location Date Provider Diagnosis [facility] [address] [place] [address] 12/30/2024 Elier Clay Encounter for screening for malignant neoplasm of colon Z12.11 ; Liver fibrosis K74.00 and History of hepatitis C Z86.19 ASSESSMENTS Encounter Date Diagnosis Assessment Notes Treatment Notes Treatment Clinical Notes 12/30/2024 Encounter for screening for malignant neoplasm of colon (ICD-10 - Z12.11) 12/30/2024 Liver fibrosis (ICD-10 - K74.00) 12/30/2024 History of hepatitis C (ICD-10 - Z86.19) PLAN OF TREATMENT Pending Test Test Name Order Date LIVER PROFILE 12/30/2024 CBC w DIFF 12/30/2024 ALPHA-FETOPROTEIN,TUMOR MARKER 5 HCV LIVER FIBROSIS, FIBRO TEST 5 Prothrombin Time INR 12/30/2024 US abdomen comp w elastography 5 Next Appt Details Follow Up: 1 Year, Reason: Provider Name:Elier Clay , 12/29/2025 09:00:00 AM, [address], [address], [place], [address],
[2024-12-31 11:13] LABS: Alpha Fetoprotein 2.3 ng/mL (<6.1)
[2025-01-05 16:37] LABS: FIB-ALT 19 U/L (9-46); FIB-Alpha-2-Macroglobulin 303 mg/dL (106-279); FIB-Apolipoprotein A1 153 mg/dL (94-176); FIB-GGT 12 U/L (3-70); FIB-Haptoglobin 194 mg/dL (43-212); FIB-Total Bilirubin 0.4 mg/dL (0.2-1.2); Liver Fibrosis Score 0.34; Liver Fibrosis Stage F1-F2; Nec Inflam Act Grade A0; Nec Inflam Act Score 0.08; Reference ID 5320368
== END 2024-12-30 09:43 | disposition home or self-care (01) ==
LOC: HO.10HDL 09:42
PROVIDERS: Visit Provider Internal Medicine
DX: K74.00 Hepatic fibrosis, unspecified (principal); Z86.19 Personal history of other infectious and parasitic diseases
CPT/HCPCS: 36415; 80076; 81596; 82105; 85025; 85610

== ENCOUNTER 2025-01-31 08:13 | Outpatient (REF) | payer MEDICARE, SELFPAY ==
--- NOTE | ~2025-01-31 | US_ITS ---
EXAMINATION: US ABDOMEN COMPLETE WITH LIVER ELASTOGRAPHY HISTORY: LIVER FIBROSIS HX OF HEP C TECHNIQUE: Real-time grayscale ultrasound imaging of the abdomen was performed and images were reviewed. COMPARISON: Comparison is made with the prior examinations dated 01/15/2024 and 01/22/2023. FINDINGS: Liver: The right lobe of the liver measures 13.5 cm in size. The left lobe of the liver measures 11.5 cm in size. The liver demonstrates normal homogeneous echotexture. No focal mass or intrahepatic biliary ductal dilatation is identified. There is normal hepatopedal flow in the portal vein. Ultrasound elastography of the liver was performed with 10 separate measurements of the liver parenchyma with the patient in the supine position. Measurements were obtained approximately 2 cm below Tree's capsule and perpendicular to the capsule. Images are of satisfactory quality. The median shear wave velocity is 1.05 m/s (previously 1.25 m/s on 01/15/2024, although this was performed on a machine from a different vendor. The previous value on a similar machine was 1.32 m/s on 01/22/2023). The interquartile range/median (IQR/median) is 0.26. Gallbladder and biliary tree: There is a 4 mm gallbladder polyp. The gallbladder is otherwise unremarkable, without evidence of calculi, wall thickening, or pericholecystic fluid. There is no sonographic Reid sign. The common bile duct is normal in caliber measuring 7 mm. Kidneys: The right kidney measures 10.1 cm in length. The left kidney measures 11.4 cm in length. There is an 11 mm cyst at the upper pole of the left kidney and a 1.9 x 2.3 x 1.6 cm cyst at the lower pole. The kidneys are otherwise unremarkable, without evidence of solid masses, hydronephrosis, or calculi. Pancreas: The pancreatic head, neck, and body are unremarkable. The pancreatic tail is obscured by bowel gas. Spleen: The spleen is normal in size and contour, measuring 10.1 cm in length. Abdominal aorta and inferior vena cava: The visualized portions of the abdominal aorta and inferior vena cava are normal in caliber. There is no free fluid in the abdomen. US/US abdomen comp w elastography IMPRESSION: Mild hepatomegaly. 4 mm gallbladder polyp. The median shear wave velocity is 1.05 m/s, corresponding to a median liver stiffness of 3.3 kPa. The IQR/median value is 0.26. This is indicative of a poor quality data set, and the estimated liver stiffness may be unreliable. Findings are indicative of a normal elastography value with a low likelihood of severe fibrosis or cirrhosis. REFERENCE: Society of Radiologists in Ultrasound Liver Stiffness Thresholds (2020): LIVER STIFFNESS THRESHOLDS: *Shear wave velocity less than 1.3 m/s (Liver Stiffness equal or less than 5 kPa): High probability of being normal. *Shear wave velocity less than 1.7 m/s (Liver Stiffness less than 9 kPa): In the absence of other known clinical signs, rules out compensated advanced chronic liver disease. *Shear wave velocity between 1.7-2.1 m/s (Liver Stiffness 9-13 kPa): Suggestive of compensated advanced chronic liver disease but need further test for confirmation. *Shear wave velocity between 2.1-2.4 m/s (Liver Stiffness 13-17 kPa): Rules in compensated advanced chronic liver disease. *Shear wave velocity greater than 2.4 m/s (Liver Stiffness over 17 kPa): Suggestive of clinically significant portal hypertension. QUALITY OF DATA SET: *IQR/Median value equal or less than 0.15 implies a quality data set. *IQR/Median value over 0.15 implies a poor quality data set. SIGNIFICANT CHANGE FROM PRIOR EXAM: Significant change if liver stiffness measurement is 10% or greater from prior exam. OTHER CONSIDERATIONS: The stage of liver fibrosis may be overestimated in the setting of acute hepatitis, liver inflammation, elevated liver function tests, hepatic vascular congestion, obstructive cholestasis, non-fasting state, and infiltrative diseases such as amyloidosis and lymphoma. In some patients with NAFLD, the liver stiffness thresholds for compensated advanced chronic liver disease may be lower. In causes other than viral hepatitis and NAFLD, liver stiffness thresholds are not well established. Electronically signed by: Elier Dempsey MD 01/31/2025 09:23 AM [facility]
--- OUTSIDE RECORDS SUMMARY | 2025-01-31 08:23 | XMS_ITS | Patient Health Record ---
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 Role Phone Berenice Bright Primary Care Provider Unavailab Elier Pereira Unavailable [phone] ALLERGIES Allergen (clinical drug ingredient) Drug/Non Drug Allergy documented on EMR Reaction Allergy Type Onset Date Status Codeine Phosphate Unknown Drug Allergy Active RESULTS Component Value Reference Range Notes Prothrombin Time INR Reviewed date:12/30/2024 04:24:02 PM Interpretation: Performing Lab:[address] [phone] Notes/Report: Prothrombin Time 11.6 10.9-12.4 SEC INTERNATIONAL [...] 3.5 Complete Blood Count Auto Di ff Reviewed date:12/30/2024 04:23:37 PM Interpretation: Performing Lab:[facility], [address] [place] [phone] Notes/Report: White Blood Count 5.8 4.8-10.8 X10*3/uL [...] Abs Auto 0.000 0.0-0.012 X10*3/uL Liver Panel Reviewed date:12/30/2024 04:23:56 PM Interpretation: Performing Lab:[facility], [address] [place] [phone] Notes/Report: Bilirubin Total 0.5 0.0-1.0 mg/dL Bilirubin Direct 0.2 0.0-0.5 mg/dL Aspartate Amino Transferase 24 5-37 U/L Alanine Aminotransferase 36 0-40 U/L Total Protein 8.0 6.5-8.0 g/dL Albumin Level 4.2 3.5-5.0 g/dL Alkaline Phosphatase 83 39-117 U/L Alpha Fetoprotein Reviewed date:01/05/2025 07:03:51 PM Interpretation: Performing Lab:[facility], [address] [place] [phone] Notes/Report: Alpha Fetoprotein 2.3 <6.1 ng/mL This test was performed using the [facility] chemiluminescent method. Values obtained from different assay methods cannot be used interchangeably. AFP levels, regardless of value, should not be interpreted as absolute evidence of the presence or absence of disease. THIS TEST WAS PERFORMED AT: [email or web address] [address] [place] [phone] ANTHONY HODGES MD Liver Fibrosis Pnl Reviewed date:01/05/2025 07:04:00 PM Interpretation: Performing Lab:[facility], [address] [place] [phone] Notes/Report: Liver Fibrosis Score 0.34 Liver Fibrosis Stage F1-F2 Liver Fibrosis Interpretation [...] F4 (severe fibrosis) Nec Inflam Act Score 0.08 Nec Inflam Act Grade A0 Nec Inflam [...] a>0.62 and a<=1.00 : A3 (severe activity) HGN-Zfqnk-2-Macroglobulin 303 106-279 mg/dL FIB-Haptoglobin 194 43-212 mg/dL FIB-Apolipoprotein A1 153 94-176 mg/dL FIB-Total Bilirubin 0.4 0.2-1.2 mg/dL FIB-GGT 12 3-70 U/L FIB-ALT 19 9-46 U/L Reference ID [id number] Footnote SEE NOTE The reliability of results is dependent on compliance with the preanalytical and analytical conditions recommended by [employer]. The tests have to be deferred for: [...] The performance characteristics have been determined by [facility] [facility]. It has not been cleared or approved by the U.S. Food and Drug Administration. Performance characteristics refer to the analytical performance of the test. Smart Panel, the associated logo, [employer] and all associated [employer] tadeo are the registered trademarks of [employer]. All third green party tadeo - (R) and (TM) - are the property of their respective owners. (C) [id number] [employer]. All rights reserved. THIS TEST WAS PERFORMED AT: [employer] [facility] [address] [place] [address] TRISTIN MARAVILLA MD,PHD,AMARIS REASON FOR REFERRAL No Information MEDICATIONS Medication [...] malignant neoplasm of colon (Z12.11) Active confirmed 202120346 Problem Chronic hepatitis C without hepatic coma (B18.2) Active confirmed 439390071 Problem History of hepatitis C (Z86.19) Active confirmed 36493473344159 Problem Liver fibrosis (K74.00) Active confirmed 55036543 VITAL SIGNS Blood pressure diastolic 00 mm Hg 12/30/2024 Height 68.25 in 12/30/2024 Blood pressure systolic 00 mm Hg 12/30/2024 Weight 135 lbs 12/30/2024 BMI 20.37 kg/m2 12/30/2024 Encounters Encounter Location Date Provider Diagnosis [facility] [address] [place] [address] 12/30/2024 Elier Clay Encounter for screening for [...] Test Test Name Order Date LIVER PROFILE 09/03/2018 LIVER PROFILE 10/14/2012 LIVER PROFILE 07/18/2016 LIVER PROFILE 10/22/2016 LIVER PROFILE 05/28/2016 LIVER PROFILE 12/30/2024 CBC w DIFF 09/03/2018 CBC w DIFF 07/18/2016 CBC w DIFF 05/28/2016 CBC w DIFF 12/30/2024 PROTHROMBIN TIME (PT, INR) 09/03/2018 ALPHA-FETOPROTEIN,TUMOR MARKER 5 ALPHA-FETOPROTEIN,TUMOR MARKER 2 ALPHA-FETOPROTEIN,TUMOR MARKER 4 ALPHA-FETOPROTEIN,TUMOR MARKER 8 ALPHA-FETOPROTEIN,TUMOR MARKER 6 ALPHA-FETOPROTEIN,TUMOR MARKER 3 HEPATITIS C VIRAL LOAD 05/28/2016 HEPATITIS C VIRAL LOAD 07/18/2016 HEPATITIS C VIRAL LOAD 09/03/2018 HEPATITIS C VIRAL LOAD 10/22/2016 HCV LIVER FIBROSIS, FIBRO TEST 5 US ABDOMEN COMP WITH ELASTOGRAPHY 2022 US abdomen comp w elastography 5 US abdomen comp w elastography 4 Future Test Test Name Order Date COLONOSCOPY 04/22/2017 COLONOSCOPY 09/03/2018 Next Appt Details Provider Name:Elier Clay , 12/29/2025 09:00:00 AM, [address] [facility], [address], [place], [address], Insurance Providers Payer Name Payer Address Payer Phone Subscriber Number Group Number Insured Name Patient Relationship to Insured Coverage Start Date [facility]age End Date [facility] [address] SAUL ODEN [id number] JOHANNY FRIAS Self - patient is the insured [...] 07/2007 except for in ternal hemorrhoids 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 Adrian mireles--no surgery as of 08/2018 Neg screening colonoscopy in 03/2019 Surgical History Surgery Date(Month/Year) Surgery on his arm for a bur n in the distant past(18 months old) / with corrective surgery
--- OUTSIDE RECORDS SUMMARY | 2025-01-31 08:23 | XMS_ITS ---
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 Name Role Phone Berenice Bright Primary Care Provider UnavailElier Partida Unavailable [phone] ALLERGIES Allergen (clinical drug ingredient) Drug/Non Drug Allergy documented on EMR Reaction Allergy Type Onset Date Status Codeine Phosphate Unknown Drug Allergy Active RESULTS Component Value Reference Range Notes Prothrombin Time INR Reviewed date:12/30/2024 04:24:02 PM Interpretation: Performing Lab:[facility], [address] [place] [phone] Notes/Report: Prothrombin Time 11.6 10.9-12.4 SEC INTERNATIONAL [...] Orally Not-Taking Multivitamin Not-Jamel ing VITAL SIGNS Blood pressure systolic 00 mm Hg 12/30/19 25 Blood pressure diastolic 00 mm Hg 025 Height 68.25 in 12/30/2024 Weight 135 lbs 12/30/2024 BMI 20.37 kg/m2 12/30/2024 Encounters Encounter Location Date Provider Diagnosis [facility] [address] [place] [address] 12/30/2024 Elier Clay Encounter for screening for [...] 12/30/2024 CBC w DIFF 12/30/2024 ALPHA-FETOPROTEIN,TUMOR MARKER HCV LIVER FIBROSIS, FIBRO TEST US abdomen comp w elastography 5 Next Appt Details Follow Up: 1 Year, Reason: Provider Name:Elier Clay , 12/29/2025 09:00:00 AM, [address], [address], [place], [address], Progress Notes * Examination Category Sub-Category Detail [...]
--- OUTSIDE RECORDS SUMMARY | 2025-01-31 08:23 | XMS_ITS ---
Author Organization [facility] Address [address] [place] [address] Care Team Providers Care Animation Artist Name Role Phone Berenice Bright Primary Care Provider Elier Osorio Unavailable [phone] ALLERGIES Allergen (clinical drug ingredient) Drug/Non Drug Allergy documented on EMR Reaction Allergy Type Onset Date Status Codeine Phosphate Unknown Drug Allergy Active RESULTS Component Value Reference Range Notes Liver Fibrosis Pnl Reviewed date:02/07/2024 07:09:48 PM Interpretation: Performing Lab:[facility], [address] [place] [phone] Notes/Report: Liver Fibrosis Score 0.39 Liver Fibrosis [...] a>0.62 and a<=1.00 : A3 (severe activity) QZB-Gxcll-6-Macroglobulin 273 106-279 mg/dL FIB-Haptoglobin 117 43-212 mg/dL FIB-Apolipoprotein A1 164 94-176 mg/dL FIB-Total Bilirubin 0.7 0.2-1.2 mg/dL FIB-GGT 9 3-70 U/L FIB-ALT 21 9-46 U/L Reference ID [id number] Footnote SEE NOTE The reliability of results is dependent on compliance with the preanalytical and analytical conditions recommended by [employer]. The tests have to be deferred for: [...] The performance characteristics have been determined by [facility]. It has not been cleared or approved by the U.S. Food and Drug Administration. Performance characteristics refer to the analytical performance of the test. [employer]airy, the associated logo, [employer] and all associated [employer] tadeo are the registered trademarks of [employer]. All third constitution party tadeo - (R) and (TM) - are the property of their respective owners. (C) [id number] [employer]. All rights reserved. THIS TEST WAS PERFORMED AT: [employer] [address] [place] [address] TRISTIN MARAVILLA MD,PHD,AMARIS REASON FOR VISIT Patient presents today for hep c MEDICATIONS Medication SIG (Take, Route, Fr equency, Duration) Notes Start Date End Date Status Multivitamin Not-Jamel ing Vitamin B Complex - as directed Orally Not-Taking PROBLEMS Problem Type ICD Code Onset Dates Problem Status W/U Status Risk SNOMED Code Notes Problem Liver fibrosis (K74.00) Active confirmed [id number] VITAL SIGNS Temperature 97.8 degrees Fahrenheit 12/30/19 24 Blood pressure systolic 00 mm Hg 12/30/19 24 Blood pressure diastolic 00 mm Hg 024 Height 68.25 in 12/30/2023 Weight 130 lbs 12/30/2023 BMI 19.62 kg/m2 12/30/2023 Encounters Encounter Location Date Provider Diagnosis [facility] [address] [place] [address] 12/30/2023 Elier Clay History of hepatitis C Z86.19 and Liver fibrosis K74.00 ASSESSMENTS Encounter Date Diagnosis Assessment Notes Treatment Notes Treatment Clinical Notes 12/30/2023 History of hepatitis C (ICD-10 - Z86.19) 12/30/2023 Liver fibrosis (ICD-10 - K74.00) 12/30/2023 Other Need copies of any 2022 labs from his PCP. They were done at [facility] PLAN OF TREATMENT Treatment Notes Assessment Notes Other Need copies of any labs from his PCP. They were done at [facility] Pending Test Test Name Order Date ALPHA-FETOPROTEIN,TUMOR MARKER 4 US abdomen comp w elastography 4 Next Appt Details Follow Up: 1 Year, Reason: Provider Name:Elier Clay , 12/29/2025 09:00:00 AM, [address], [address], [place], [address], Progress Notes * Examination Category Sub-Category Detail [...]
== END 2025-01-31 08:14 | disposition home or self-care (01) ==
LOC: HO.US 08:13
PROVIDERS: PCP Internal Medicine; Visit Provider Internal Medicine
DX: K74.00 Hepatic fibrosis, unspecified (principal); Z86.19 Personal history of other infectious and parasitic diseases
CPT/HCPCS: 76700; 76981

== ENCOUNTER → 2025-01-31 08:15 | Outpatient (BNV) | payer MEDICARE, SELFPAY | PROVIDERS: PCP Internal Medicine; Visit Provider Radiology Diagnostic Radiology | DX: K74.00 Hepatic fibrosis, unspecified (principal) | CPT/HCPCS: 76700; 76981 ==

== ENCOUNTER 2025-08-04 09:27 | Outpatient (REF) | payer MEDICARE, SELFPAY ==
--- OUTSIDE RECORDS SUMMARY | 2025-08-04 10:11 | XMS_ITS | Patient Health Record ---
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 Role Phone Berenice Bright Primary Care Provider Unavailab Elier Pereira Unavailable [phone] Allergies Allergen (clinical drug ingredient) Drug/Non Drug Allergy documented on EMR Reaction Allergy Type Onset Date Status Codeine Phosphate Unknown Drug Allergy Active Results Component Value Reference Range Notes Prothrombin Time INR Reviewed date:12/30/2024 04:24:02 PM Interpretation: Performing Lab:[address] [id number] Notes/Report: Prothrombin Time 11.6 10.9-12.4 [employer] [...] ff Reviewed date:12/30/2024 04:23:37 PM Interpretation: Performing Lab:[facility], [address] [place] [phone] Notes/Report: White Blood Count 5.8 4.8-10.8 X10*3/uL [...] Panel Reviewed date:12/30/2024 04:23:56 PM Interpretation: Performing Lab:[facility], [address] [place] [phone] Notes/Report: Bilirubin Total 0.5 0.0-1.0 mg/dL Bilirubin Direct 0.2 0.0-0.5 mg/dL Aspartate Amino Transferase 24 5-37 U/L Alanine Aminotransferase 36 0-40 U/L Total Protein 8.0 6.5-8.0 g/dL Albumin Level 4.2 3.5-5.0 g/dL Alkaline Phosphatase 83 39-117 U/L Alpha Fetoprotein Reviewed date:01/05/2025 07:03:51 PM Interpretation: Performing Lab:[facility], [address] [place] [phone] Notes/Report: Alpha Fetoprotein 2.3 <6.1 ng/mL This test was performed using the Eveertt Jacob chemiluminescent method. Values obtained from different assay methods cannot be used interchangeably. AFP levels, regardless of value, should not be interpreted as absolute evidence of the presence or absence of disease. THIS TEST WAS PERFORMED AT: [employer] [address] [place] [phone] ANTHONY HODGES MD Liver Fibrosis Pnl Reviewed date:01/05/2025 07:04:00 PM Interpretation: Performing Lab:[facility], [address] [place] [phone] Notes/Report: Liver Fibrosis Score 0.34 Liver Fibrosis [...] a>0.62 and a<=1.00 : A3 (severe activity) BMO-Ltkjh-2-Macroglobulin 303 106-279 mg/dL FIB-Haptoglobin 194 43-212 mg/dL FIB-Apolipoprotein A1 153 94-176 mg/dL FIB-Total Bilirubin 0.4 0.2-1.2 mg/dL FIB-GGT 12 3-70 U/L FIB-ALT 19 9-46 U/L Reference ID [id number] Footnote SEE NOTE The reliability of results is dependent on compliance with the preanalytical and analytical conditions recommended by [employer]. The tests have to be deferred for: [...] The performance characteristics have been determined by [facility]. It has not been cleared or approved by the U.S. Food and Drug Administration. Performance characteristics refer to the analytical performance of the test. [employer], the associated logo, [employer] and all associated [employer] tadeo are the registered trademarks of [employer]. All third republican tadeo - (R) and (TM) - are the property of their respective owners. (C) 6419-1758 [employer]. All rights reserved. THIS TEST WAS PERFORMED AT: [employer] [facility] [address] [place] [address] TRISTIN MARAVILLA MD,PHD,AMARIS US abdomen comp w elastograp hy (Not yet reviewed by provider) Interpretation: Performing Lab: Notes/Report: [address] [address] Ultrasound Report Signed Patient: Eulalio Frias MR#: [id number] 8 : 03/01/1951 Acct:[id number] Age/Sex: 73 / M ADM Date: 01/31/25 Loc: HO.US Attending Dr: Elier Clay MD Ordering Physician: Elier Clay MD Date of Service: 01/31/25 Procedure(s): US abdomen comp w elastography Accession Number(s): [id number] cc: Berenice Bright MD; Elier Clay MD EXAMINATION: US ABDOMEN COMPLETE WITH LIVER ELASTOGRAPHY HISTORY: LIVER FIBROSIS HX OF HEP C TECHNIQUE: Real-time grayscale ultrasound imaging of the abdomen was performed and images were reviewed. COMPARISON: Comparison is made with the prior examinations dated 01/15/2024 and 01/22/2023. FINDINGS: Liver: The right lobe of the liver measures 13.5 cm in size. The left lobe of the liver measures 11.5 cm in size. The liver demonstrates normal homogeneous echotexture. No focal mass or intrahepatic biliary ductal dilatation is identified. There is normal hepatopedal flow in the portal vein. Ultrasound elastography of the liver was performed with 10 separate measurements of the liver parenchyma with the patient in the supine position. Measurements were obtained approximately 2 cm below Tree's capsule and perpendicular to the capsule. Images are of satisfactory quality. The median shear wave velocity is 1.05 m/s (previously 1.25 m/s on 01/15/2024, although this was performed on a machine from a different vendor. The previous value on a similar machine was 1.32 m/s on 01/22/2023). The interquartile range/median (IQR/median) is 0.26. Gallbladder and biliary tree: There is a 4 mm gallbladder polyp. The gallbladder is otherwise unremarkable, without evidence of calculi, wall thickening, or pericholecystic fluid. There is no sonographic Reid sign. The common bile duct is normal in caliber measuring 7 mm. Kidneys: The right kidney measures 10.1 cm in length. The left kidney measures 11.4 cm in length. There is an 11 mm cyst at the upper pole of the left kidney and a 1.9 x 2.3 x 1.6 cm cyst at the lower pole. The kidneys are otherwise unremarkable, without evidence of solid masses, hydronephrosis, or calculi. Pancreas: The pancreatic head, neck, and body are unremarkable. The pancreatic tail is obscured by bowel gas. Spleen: The spleen is normal in size and contour, measuring 10.1 cm in length. Abdominal aorta and inferior vena cava: The visualized portions of the abdominal aorta and inferior vena cava are normal in caliber. There is no free fluid in the abdomen. US/US abdomen comp w elastography IMPRESSION: Mild hepatomegaly. 4 mm gallbladder polyp. The median shear wave velocity is 1.05 m/s, corresponding to a median liver stiffness of 3.3 kPa. The IQR/median value is 0.26. This is indicative of a poor quality data set, and the estimated liver stiffness may be unreliable. Findings are indicative of a normal elastography value with a low likelihood of severe fibrosis or cirrhosis. REFERENCE: Society of Radiologists in Ultrasound Liver Stiffness Thresholds (2019): LIVER STIFFNESS THRESHOLDS: *Shear wave velocity less than 1.3 m/s (Liver Stiffness equal or less than 5 kPa): High probability of being normal. *Shear wave velocity less than 1.7 m/s (Liver Stiffness less than 9 kPa): In the absence of other known clinical signs, rules out compensated advanced chronic liver disease. *Shear wave velocity between 1.7-2.1 m/s (Liver Stiffness 9-13 kPa): Suggestive of compensated advanced chronic liver disease but need further test for confirmation. *Shear wave velocity between 2.1-2.4 m/s (Liver Stiffness 13-17 kPa): Rules in compensated advanced chronic liver disease. *Shear wave velocity greater than 2.4 m/s (Liver Stiffness over 17 kPa): Suggestive of clinically significant portal hypertension. QUALITY OF DATA SET: *IQR/Median value [...] liver stiffness thresholds are not well established. Electronically signed by: Elier Dempsey MD 01/31/2025 09:23 AM EST Dictated By: Elier Dempsey MD Signed By: <Electronically signed by Elier Dempsey MD in OV> 01/31/25922 DD/ 5 TD/TT: 01/31/25 09 Admitting Supervisor: Reason For Referral No Information Medications Medication SIG (Take, Route, Fr equency, Duration) Notes Start Date End Date Status Vitamin B Complex - as directed Orally Not-Taking Multivitamin Not-Jamel ing Immunizations Vaccine Route Administration Date Status Comme nts Influenza Unknown 08/01/2022 Administered Influenza Unknown 05/02/2020 Refused Problems Problem Type SNOMED Code ICD Code Onset Dates Problem Status W/U Status Risk Notes Problem [id number] Encounter for screening for malignant neoplasm of colon (Z12.11) Active confirmed Problem 096632314 Chronic hepatitis C without hepatic coma (B18.2) Active confirmed Problem 77315841083998 History of hepatitis C (Z86.19) Active confirmed Problem 47910663 Liver fibrosis (K74.00) Active confirmed Vital Signs Blood pressure diastolic 00 mm Hg 12/30/2024 Height 68.25 in 12/30/2024 Blood pressure systolic 00 mm Hg 12/30/2024 Weight 135 lbs 12/30/2024 BMI 20.37 kg/m2 12/30/2024 Encounters Encounter Location Date Provider Diagnosis [facility] [address] [place] [address] 12/30/2024 Leier Danna Encounter for screening for malignant neoplasm of colon Z12.11 ; Liver fibrosis K74.00 and History of hepatitis C Z86.19 Assessments Encounter Date Diagnosis (ICD Code) Assessment Notes Treatment Notes Treatment Clinical Notes Section Notes 12/30/2024 Encounter for screening for malignant neoplasm of colon (ICD-10 - Z12.11) Overall, Eulalio appears well and does not show any signs nor have any symptoms of progressive liver disease. We did review his previous studies from 2023. I did recommend a followup abdominal ultrasound and the below laboratories including an alpha-fetoprotei n level and a liver fibrosis score. We also reviewed that he is not due for another screening colonoscopy until 2028 given the negative exam in 2018 and no family history of colorectal cancer. If things remain well I will plan to see Eulalio in one year for a followup office visit. I did advise him to certainly call in the interim if he has any problems or questions I can be of assistance with. Eulalio was comfortable with this plan. Thank you again for allowing me to participate in Eulalio's care. I shall continue to keep you advised of his progress. 12/30/2024 Liver fibrosis (ICD-10 - K74.00) Overall, Eulalio appears well and does not show any signs nor have any symptoms of progressive liver disease. We did review his previous studies from 2023. I did recommend a followup abdominal ultrasound and the below laboratories including an alpha-fetoprotei n level and a liver fibrosis score. We also reviewed that he is not due for another screening colonoscopy until 2028 given the negative exam in 2018 and no family history of colorectal cancer. If things remain well I will plan to see Eulalio in one year for a followup office visit. I did advise him to certainly call in the interim if he has any problems or questions I can be of assistance with. Eulalio was comfortable with this plan. Thank you again for allowing me to participate in Eulalio's care. I shall continue to keep you advised of his progress. 12/30/2024 History of hepatitis C (ICD-10 - Z86.19) Overall, Eulalio appears well and does not show any signs nor have any symptoms of progressive liver disease. We did review his previous studies from 2023. I did recommend a followup abdominal ultrasound and the below laboratories including an alpha-fetoprotei n level and a liver fibrosis score. We also reviewed that he is not due for another screening colonoscopy until 2028 given the negative exam in 2019 and no family history of colorectal cancer. If things remain well I will plan to see Eulalio in one year for a followup office visit. I did advise him to certainly call in the interim if he has any problems or questions I can be of assistance with. Eulalio was comfortable with this plan. Thank you again for allowing me to participate in Eulalio's care. I shall continue to keep you advised of his progress. Plan Of Treatment Pending Test Test Name Order Date LIVER PROFILE 07/18/2016 LIVER PROFILE 10/14/2012 LIVER PROFILE 12/30/2024 LIVER PROFILE 09/03/2018 LIVER PROFILE 05/28/2016 LIVER PROFILE 10/22/2016 CBC w DIFF 07/18/2016 CBC w DIFF 12/30/2024 CBC w DIFF 09/03/2018 CBC w DIFF 05/28/2016 PROTHROMBIN TIME (PT, INR) 09/03/2018 ALPHA-FETOPROTEIN,TUMOR MARKER 8 ALPHA-FETOPROTEIN,TUMOR MARKER 3 ALPHA-FETOPROTEIN,TUMOR MARKER 2 ALPHA-FETOPROTEIN,TUMOR MARKER 5 ALPHA-FETOPROTEIN,TUMOR MARKER 4 ALPHA-FETOPROTEIN,TUMOR MARKER 6 HEPATITIS C VIRAL LOAD 10/22/2016 HEPATITIS C VIRAL LOAD 09/03/2018 HEPATITIS C VIRAL LOAD 07/18/2016 HEPATITIS C VIRAL LOAD 05/28/2016 HCV LIVER FIBROSIS, FIBRO TEST 5 US ABDOMEN COMP WITH ELASTOGRAPHY 2022 US abdomen comp w elastography 4 US abdomen comp w elastography 5 US abdomen comp w elastography 5 Future Test Test Name Order Date COLONOSCOPY 04/22/2017 COLONOSCOPY 09/03/2018 Next Appt Details Provider Name:Elier Clay , 12/29/2025 09:00:00 AM, [address] [place] [address], [address], [place], [address], Insurance Providers Payer Name Payer Address Payer Phone Subscriber Number Group Number Insured Name Patient Relationship to Insured Coverage Start Date Coverage End Date [facility] [address] [place], [place] [id number] EULALIO FRIAS Self - patient is the insured Medical (General) History Medical History History ICD Code Chronic hep [...] 07/2007 except for in ternal hemorrhoids 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 Adrian mireles--no surgery as of 08/2018 Neg screening colonoscopy in 03/2019 Surgical History Surgery Date(Month/Year) Surgery on his arm for a bur n in the distant past(18 months old) / with corrective surgery
[2025-08-04 11:00] LABS: Alanine Aminotransferase 22 U/L (0-40); Albumin Level 4.4 g/dL (3.5-5.0); Alkaline Phosphatase 88 U/L (39-117); Anion Gap 9 (12-20); Aspartate Amino Transferase 29 U/L (5-37); Blood Urea Nitrogen 13 mg/dL (9-16); Calcium 9.0 mg/dL (8.4-10.2); Carbon Dioxide 31 mmol/L (22-29); Chloride 101 mmol/L (96-108); Cholesterol 162 mg/dL (<200); Estimated Glomerular Filt Rate > 60; HDL Cholesterol 52 mg/dL (>40); Potassium 4.8 mmol/L (3.3-5.1); Sodium 136 mmol/L (135-145); Total Protein 7.3 g/dL (6.5-8.0); Triglycerides 54 mg/dL (<150)
== END 2025-08-04 09:28 | disposition home or self-care (01) ==
LOC: HO.10HDL 09:27
PROVIDERS: Visit Provider Internal Medicine
DX: Z12.5 Encounter for screening for malignant neoplasm of prostate (principal); Z13.6 Encounter for screening for cardiovascular disorders; B18.2 Chronic viral hepatitis C; N40.0 Benign prostatic hyperplasia without lower urinary tract symptoms
CPT/HCPCS: 36415; 80053; 80061; 84153